=== PATIENT | female | born 1940 | race Caucasian/White ===

== ENCOUNTER 2017-02-07 02:50 | Inpatient (IN) | payer OTHER ==
[~2017-02-07] VITALS: Ht 149.9 cm; Wt 69.4 kg
--- NOTE | 2017-02-07 02:50 | NUR ---
BIBA TO ER BED 11
--- NOTE | 2017-02-07 02:50 | NUR ---
Patient being evaluated by physician at bedside.
[2017-02-07 02:57] VITALS: BP 140/79
[2017-02-07] MEDS ORDERED: VANCOMYCIN 1,000 MG in DEXTROSE 5% 250 ML IV ONE (03:10)
[2017-02-07] MEDS ORDERED: LEVOFLOXACIN 500 MG/D5W PREMIX 100 ML IV ONE (03:10)
--- NOTE | 2017-02-07 03:20 | NUR ---
76 Y/O F BIBA C/O SOB WITH CHEST PAIN, PRODUCTIVE COUGH X 3 DAYS. ON BI PAP, 2 BREATHING TREATMENT WAS GIVEN ENROUTE. ON PROFESSIONAL ARCHITECT, ER MD AND RT AT BEDSIDE.
[2017-02-07 03:34] LABS: BASOPHILS # (AUTO) 0.4 K/uL (0.00-0.22); EOSINOPHILS # (AUTO) 0.1 K/uL (0-0.4); MONOCYTES # (AUTO) 0.2 K/uL (0.8-1.0)
[2017-02-07 03:41] LABS: EOSINOPHILS % (AUTO) 0.8 % (0.0-4.0); HEMATOCRIT 30.1 % (36-48); HEMOGLOBIN 9.6 g/dL (12.0-16.0); LYMPHOCYTES # (AUTO) 1.2 K/uL (2.5-16.5); LYMPHOCYTES % (AUTO) 10.3 % (20.5-51.1); MEAN CORPUSCULAR HEMOGLOBIN 30 pg (27-31); MEAN CORPUSCULAR HGB CONC 32 g/dL (33-37); MEAN CORPUSCULAR VOLUME 95 fL (80-94); MONOCYTES % (AUTO) 1.9 % (1.7-9.3); NEUTROPHILS # (AUTO) 10.2 K/uL (1.8-7.7); PLATELET COUNT (AUTO) 198 K/uL (140-450); RED BLOOD CELL COUNT(AUTO) 3.18 MIL/uL (4.20-5.40); RED CELL DISTRIBUTION WIDTH 15.7 % (11.6-13.7)
[2017-02-07 03:47] LABS: WHITE BLOOD COUNT (AUTO) 12.1 K/uL (4.8-10.8)
[2017-02-07] MEDS ORDERED: FUROSEMIDE 20 MG/2 ML VIAL IVP ONE (03:50)
[2017-02-07 03:56] LABS: ANION GAP 27.1 (8-16); ASPARTATE AMINOTRANSFERASE 62 U/L (15-37); CARBON DIOXIDE 11.2 mmol/L (21-32); CHLORIDE 99 mmol/L (98-107); CREATININE 2.2 mg/dL (0.6-1.3); POTASSIUM 5.3 mmol/L (3.5-5.1); SODIUM SERUM 132 mmol/L (136-145); TOTAL BILIRUBIN 0.2 mg/dL (0.0-1.0); UREA NITROGEN, BLOOD 37 mg/dL (7-18)
[2017-02-07 03:58] LABS: GLUCOSE 402 mg/dL (74-106)
[2017-02-07] MEDS ORDERED: ACETAMINOPHEN 325 MG TAB PO PRN (04:00)
[2017-02-07] MEDS ORDERED: ONDANSETRON 4 MG/2 ML VIAL IVP PRN (04:00)
[2017-02-07] MEDS ORDERED: HYDROcodone/APAP 7.5/325 MG 1 TAB PO PRN (04:00)
[2017-02-07] MEDS ORDERED: NACL 0.9% 1,000 ML IV SCH (04:00)
[2017-02-07] MEDS ORDERED: INSULIN HUMAN REGULAR 100 UNITS/ML 10 ML VIAL IVP ONE (04:00)
[2017-02-07] MEDS ORDERED: VANCOMYCIN 1,000 MG VIAL ONE (04:08)
--- NOTE | 2017-02-07 04:10 | NUR ---
BEAR HUGER BLANKET APPLIED D/T LOW TEMP, WILL CONT TO MONITOR PT.
[2017-02-07 04:13] VITALS: BP 113/58
--- NOTE | 2017-02-07 04:15 | NUR ---
Patient will be admitted to care of dr. Ken. Admited to icu. Will go to room 2. Belongings list completed.
--- NOTE | 2017-02-07 04:17 | NUR ---
PT BIB PARAMEDICS AT APPROX 0320 DUE TO SOB, PT ON CPAP, HAD 2 HHN TXS EN ROUTE. PT PLACED ON BIPAP 12/5, RR 12, FIO2 100% WITH A MEDIUM FACE MASK. PT BREATH SOUNDS APPEAR CLEAR/DIMINISHED BASES. PT HAS A NON PRODUCTIVE COUGH AT THIS TIME. ABG ORDERED AND ATTEMPTED X3 BY RTs, Gaby RIOS AND NELSON, BOTH RTs WERE UNABLE TO OBTAIN ABG, PT'S EXTREMITIES VERY COLD. PULSE OXIMETRY SHOWING 100%, DR MARIANO AND DR Matty SALINAS AWARE. ABG TO BE HELD AT THIS TIME PER DR MARIANO. BIPAP ALARMS ON AND AUDIBLE, BIPAP PLUGGED INTO RED ELECTRICAL OUTLET.
[2017-02-07] MEDS ORDERED: ALBUTEROL SULFATE/IPRATROPIU 3 ML SOL IH PRN (04:20)
[2017-02-07] MEDS ORDERED: NITROGLYCERIN 0.4 MG TAB SL PRN (04:20)
[2017-02-07] MEDS ORDERED: INSULIN LISPRO SLIDING SCALE 100 UNITS/ML VIAL SUBQ PRN (04:20)
[2017-02-07] MEDS ORDERED: NACL 0.9% 1,000 ML IV ONE (04:20)
[2017-02-07] MEDS ORDERED: DEXTROSE 50% 50 ML SYR IVP PRN ×2 (04:20→08:00)
--- NOTE | 2017-02-07 04:41 | NUR ---
Report given to Lamin brady.
--- NOTE | 2017-02-07 04:51 | NUR ---
PT TRANSFERED TO ICU VIA GURNEY. ACCOMPANIED BY CHARGE NURSE, RT, EMT AND ME PRIMERY NURSE.
[2017-02-07] MEDS ORDERED: NACL 0.9% 500 ML IV SCH ×3 (05:00→07:15)
[2017-02-07] MEDS ORDERED: SODIUM POLYSTYRENE 15 GM/60 ML UDBTL PO SCH (05:05)
[2017-02-07 05:06] VITALS: BP 132/45
--- NOTE | 2017-02-07 05:06 | NUR ---
PT TRANSPORTED TO ICU 2 WITHOUT COMPLICATIONS. PLACED BACK ON BIPAP WITH PREVIOUS SETTINGS. FAMILY AT BEDSIDE.
[2017-02-07 05:27] LABS: PROTHROMBIN TIME 10.8 secs (10.8-13.4)
[2017-02-07] MEDS ORDERED: MORPHINE SULFATE 2 MG/ML SYR IVP PRN (05:30)
--- NOTE | 2017-02-07 05:30 | NUR ---
PT ARRIVED TO ICU BED 2 WITH 2 RNS, 1 EMT, 2 RTS, AND HER DAUGHTER VIA KAY. WILL ADMIT THE PT. Addendum: 02/07/17 at 0531 by Denise Hamilton RN TIME OF ARRIVAL TO THE UNIT IS 0450
[2017-02-07] MEDS ORDERED: CLINDAMYCIN 600 MG/4 ML VIAL ONE (05:33)
[2017-02-07] MEDS ORDERED: MORPHINE SULFATE 2 MG/ML SYR ONE (05:44)
[2017-02-07 05:48] LABS: CHOL/HDL RATIO 2.2 (1-4.5); FREE T4 (FREE THYROXINE) 1.03 ng/dL (0.76-1.46); MAGNESIUM 1.5 mg/dL (1.8-2.4); PHOSPHORUS 5.9 mg/dL (2.5-4.9); THYROID STIMULATING HORMONE 13.58 uIU/mL (0.34-3.74)
[2017-02-07 06:00] VITALS: BP 100/57
[2017-02-07] MEDS ORDERED: CLINDAMYCIN 600 MG in DEXTROSE 5% 50 ML IV SCH (06:00)
[2017-02-07] MEDS ORDERED: HEPARIN PER PHARMACY MC PRN (06:20)
[2017-02-07] MEDS ORDERED: hePARIN / DEXT 5% PREMIX 250 ML IV SCH ×2 (06:20→09:00)
--- NOTE | 2017-02-07 06:30 | NUR ---
PT IS A&OX3, PERRL. LAO SPEAKING WITH SIMPLE CITIZEN OF [place]. TENZIN, DAUGHTER AT BED SIDE ANSWERING ADMISSION QUESTIONS. PT CAME IN FROM ER WITH BIPAP: 12/5, RR12, FIO2 100%. BILATERAL LUNG SOUNDS CLEAR IN UPPER LOBES AND DIMINISHED IN LOWER LOBES. S1 AND S2 HEARD WITHOUT ANY ABNORMAL SOUNDS. ON CONTINUOUS CARDIAC MONITORING AND SINUS TACHY WITH BUNDLE BRANCH BLOCK. BOWEL SOUNDS HEARD FROM ALL 4 QUADS. NOTED OLD SURGICAL SITES TO RIGHT UPPER LEG AND RIGHT ARM. DAUGHTER STATED THAT THE PT HAS HX OF HIP AND ARM SURGERY AND HAD BAD INFECTION. C/O GENERALIZED PAIN 10/18 AND ADMINISTERED MORPHINE IV ORDERED AND NOW PT DENIES PAIN. PT WAS COVERED WITH LAZARO HUGGER (HYPOTHERMIA BLANKET). TEMP 96.7 F. LIZA CATH TO RIGHT UPPER CHEST PATENT AND ASYMPTOMATIC. GENERALIZED WEAKNESS NOTED AND IS AT BED REST AT THIS TIME. ADMISSION ASSESSMENT DONE AND EDUCATION PROVIDED REGARDING THE CONDITION AND HOSPITAL ROUTINES AND PLAN OF CARE. CALL LIGHT IN REACH. HOB ELEVATED TO 30 DEGREES. BED KEPT TO THE LOWEST POSITION. FALL RISK PRECAUTIONS IN PLACE. WILL CONTINUE TO MONITOR.
[2017-02-07 06:55] VITALS: BP 80/49
[2017-02-07] MEDS ORDERED: ALBUTEROL SULFATE/IPRATROPIU 3 ML SOL IH SCH (07:00)
[2017-02-07] MEDS ORDERED: INSULIN HUMAN REGULAR 100 UNITS in NACL 0.9% 100 ML IV SCH ×2 (07:05→08:00)
--- NOTE | 2017-02-07 07:16 | NUR ---
RECEIVED PT STABLE ON BIPAP SUPPORT AT DOCUMENTED SETTINGS WITH A MEDIUM MASK ON, HHN TX GIVEN, TOLERATED WELL, NO RESP DISTRESS OR SOB AT THIS TIME, AFTER TX PT ASKED TO TAKE A BREAK FROM THE BIPAP, PT TAKEN OFF AND PLACED ON 10 LPM OXIMIZER WITH O2 SAT 100% FROM PORTABLE OXIMETER, AMBUBAG PLACED AT BEDSIDE, BIPAP ON STANDBY AND READY, PT IS COMFORTABLE AND RESTING AT THIS TIME, WILL CONTINUE TO MONITOR.
--- NOTE | 2017-02-07 07:20 | NUR ---
REPORT GIVEN TO MORNING NURSE, PEDRO FOR CONTINUITY OF CARE. PT DENIES ANY PAIN OR DISCOMFORT. CONTINUING WITH CARDIAC MONITORING. NO ACUTE DISTRESS NOTED. ALL SAFETY PRECAUTIONS ARE IN PLACE.
[2017-02-07] MEDS ORDERED: BLOOD GLUCOSE MONITORING 1 DEV DEV FS SCH ×2 (07:30→08:00)
--- NOTE | 2017-02-07 07:30 | NUR ---
RECEIVED PT FROM SIDE SEAM MACHINE OPERATOR RN, PT AWAKE, ALERT. BEDSIDE MONITOR SHOWS ST 101 WITH BUNDLE BRANCH BLOCK, PT ON 10LPM OXIMIZER. O2 SATS 100% BP 83/57. ON HYPOTHERMIA BLANKET, TEMP CHECKED 96.8 F. ABDOMINAL SOFT WITH ACTIVE BOWEL SOUND. PT ON 0.9% NS 500 ML BOLUS AT THIS TIME, IV TO RIGHT CHEST, SITE INTACT AND PATENT. KAUR CATH IN PLACE WITH 10 ML YELLOW URINE NOTED. GENERALIZED WEAKNESS NOTED, POC EXPLAINED TO PT. HOB ELEVATED 30 DEGREE WITH LOW BED POSITION.CALL LIGHT IN REACH, WILL CONTINUE TO MONITOR.
--- NOTE | 2017-02-07 07:55 | NUR ---
PT VOMITED STOMACH CONTENT 20ML AT 0752, CLEANED PATIENT AND ZOFRAN [address] CULP MAKING ROUNDS AT THIS TIME, MADE DR. CULP AWARE PT'S VITAL SIGNS AND PT HAD VOMITING.
[2017-02-07 08:06] VITALS: BP 82/48
--- NOTE | 2017-02-07 08:28 | NUR ---
PT BECAME RESTLESS AND MONITOR SHOWS HR DROPPED TO 48, CALLED DOCTOR TO SEE PT. TIN RECOVERY WORKER BAUTISTA AT BEDSIDE. DOCTOR CAME TO CHECK PT IMMEDIATELY.
[2017-02-07] MEDS ORDERED: MIDAZOLAM 2 MG/2 ML VIAL IV ONE (08:30)
--- NOTE | 2017-02-07 08:30 | NUR ---
START CODE BLUE, REFER TO CODE BLUE RECORD.
--- NOTE | 2017-02-07 08:32 | NUR ---
CALLED PT'S DAUGHTER( TENZIN MILIAN )[phone], NOTIFIED PT'S CONDITION. SHE WILL COME TO SEE.
--- NOTE | 2017-02-07 08:37 | NUR ---
START TO INTUBATE PT.
[2017-02-07] MEDS ORDERED: NOREPINEPHRINE 4 MG in DEXTROSE 5% 250 ML IV PRN ×2 (08:40→08:50)
[2017-02-07] MEDS ORDERED: MORPHINE SULFATE 50 MG in NACL 0.9% 45 ML IV PRN (08:40)
[2017-02-07] MEDS ORDERED: MIDAZOLAM MDV 50 MG in NACL 0.9% 40 ML IV PRN (08:40)
--- NOTE | 2017-02-07 08:57 | NUR ---
PATIENT HAS BEEN SCREENED AND CATEGORIZED MODERATE NUTRITION RISK. PATIENT WILL BE SEEN WITHIN 3-5 DAYS OF ADMISSION. 02/09/17-02/11/[address]
[2017-02-07] MEDS ORDERED: AMIODARONE 150 MG in DEXTROSE 5% 100 ML IV SCH (08:58)
[2017-02-07] MEDS ORDERED: ASPIRIN 81 MG TAB.CHEW PO SCH (09:00)
[2017-02-07] MEDS ORDERED: METOPROLOL 25 MG TAB PO SCH (09:00)
[2017-02-07] MEDS ORDERED: DOCUSATE SODIUM 100 MG GELCAP PO SCH (09:00)
[2017-02-07] MEDS ORDERED: MAG SULF 2000 MG/WATER PREMIX 50 ML IV SCH (09:00)
[2017-02-07] MEDS ORDERED: FUROSEMIDE 20 MG/2 ML VIAL IVP SCH (09:00)
[2017-02-07] MEDS ORDERED: AMIODARONE 450 MG in DEXTROSE 5% 250 ML IV SCH (09:00)
[2017-02-07] MEDS ORDERED: LEVOFLOXACIN 750 MG/D5W PREMIX 150 ML IV SCH (09:00)
[2017-02-07] MEDS ORDERED: LISINOPRIL 5 MG TAB PO SCH (09:00)
[2017-02-07] MEDS ORDERED: LACTOBACILLUS RHAMNOSUS GG 1 EACH CAP PO SCH (09:00)
[2017-02-07] MEDS ORDERED: PANTOPRAZOLE 40 MG INJ VIAL IVP SCH (09:00)
[2017-02-07] MEDS ORDERED: MIDAZOLAM 2 MG/2 ML VIAL ONE (09:08)
[2017-02-07 09:16] LABS: ANION GAP 27.6 (8-16); CHLORIDE 106 mmol/L (98-107); CREATININE 2.2 mg/dL (0.6-1.3); GLUCOSE 283 mg/dL (74-106); POTASSIUM 5.3 mmol/L (3.5-5.1); SODIUM SERUM 138 mmol/L (136-145); UREA NITROGEN, BLOOD 35 mg/dL (7-18)
--- NOTE | 2017-02-07 09:16 | NUR ---
UNSUCCESSFUL CODE ENDED AT 0916, PRONOUNCED BY .
[2017-02-07 09:20] LABS: CARBON DIOXIDE 9.7 mmol/L (21-32)
[2017-02-07 09:22] LABS: MAGNESIUM 1.5 mg/dL (1.8-2.4); PHOSPHORUS 6.3 mg/dL (2.5-4.9)
--- NOTE | 2017-02-07 15:55 | NUR ---
M[employer] SPECIAL DELIVERY MESSENGER ZACHARY ZUNIGA PRESENT TO ICU.
--- NOTE | 2017-02-07 16:05 | NUR ---
MERLY AN RETAIL PERSONAL BANKER BODY AND LEAVE AT THIS TIME
[2017-02-07] MEDS ORDERED: ATORVASTATIN 20 MG TAB PO SCH (21:00)
[2017-02-09] MEDS ORDERED: LEVOFLOXACIN 250 MG/D5 PREMIX 50 ML IV SCH (09:00)
== END 2017-02-07 09:16 | disposition expired | DRG 208 ==
LOC: MED 02:50 → MIC 04:15
PROVIDERS: ADMIT Family Medicine; ATTEND Family Medicine
PROC: 5A1935Z Respiratory Ventilation, Less than 24 Consecutive Hours (ICD-10-PCS; principal; 2017-02-07)
PROC: 5A12012 Performance of Cardiac Output, Single, Manual (ICD-10-PCS; 2017-02-07)
PROC: 0BH17EZ Insertion of Endotracheal Airway into Trachea, Via Natural or Artificial Opening (ICD-10-PCS; 2017-02-07)
PROC: 02H633Z Insertion of Infusion Device into Right Atrium, Percutaneous Approach (ICD-10-PCS; 2017-02-07)
PROC: 5A1935Z Respiratory Ventilation, Less than 24 Consecutive Hours (ICD-10-PCS; 2017-02-07)
DX: J96.00 Acute respiratory failure, unspecified whether with hypoxia or hypercapnia (principal); I46.9 Cardiac arrest, cause unspecified; I21.9 Acute myocardial infarction, unspecified; N17.0 Acute kidney failure with tubular necrosis; I50.43 Acute on chronic combined systolic (congestive) and diastolic (congestive) heart failure; E44.0 Moderate protein-calorie malnutrition; E87.1 Hypo-osmolality and hyponatremia; E87.5 Hyperkalemia; E11.9 Type 2 diabetes mellitus without complications; E86.0 Dehydration; K21.9 Gastro-esophageal reflux disease without esophagitis; M94.0 Chondrocostal junction syndrome [Tietze]; I10 Essential (primary) hypertension; Z88.6 Allergy status to analgesic agent; Z90.710 Acquired absence of both cervix and uterus; M19.90 Unspecified osteoarthritis, unspecified site; Z87.891 Personal history of nicotine dependence; Z68.30 Body mass index [BMI] 30.0-30.9, adult
CPT/HCPCS: 36415; 51702; 71010; 80048; 80053; 82140; 82150; 82948; 83036; 83605; 83690; 83735; 83880; 84100; 84439; 84443; 84484; 85025; 85610; 85730; 87040; 87081; 92950; 93005; 94640; 94660; 96365; 96367; 96375; 99291; J0282; J1815; J1940; J1956; J2250; J2270; J2405; J3370; J3490; J7030; J7060; J7620; Q0092